=== PATIENT | male | born 1945 | race Caucasian/White ===

== ENCOUNTER 2017-09-10 08:41 | Emergency (ER) | payer OTHER ==
[~2017-09-10] VITALS: Ht 172.7 cm; Wt 90.9 kg
[2017-09-10] MEDS ORDERED: ASPI81 PO (09:01)
[2017-09-10] MEDS ORDERED: INSLAN SQ (09:01)
[2017-09-10] MEDS ORDERED: HYDR-4069 PO (09:01)
[2017-09-10] MEDS ORDERED: LISI-662 PO (09:01)
[2017-09-10] MEDS ORDERED: SITA100 PO (09:01)
[2017-09-10] MEDS ORDERED: INSU3INS5 SQ (09:01)
[2017-09-10] MEDS ORDERED: FURO20 PO (09:01)
[2017-09-10] MEDS ORDERED: METO50 PO (09:01)
[2017-09-10] MEDS ORDERED: AMLO-512 PO (09:01)
[2017-09-10] MEDS ORDERED: OMEP20 PO (09:01)
[2017-09-10] MEDS ORDERED: FERR-89 PO (09:01)
[2017-09-10] MEDS ORDERED: GABA-531 PO (09:01)
[2017-09-10] MEDS ORDERED: SIMV-259 PO (09:01)
[2017-09-10] MEDS ORDERED: NAPR-58 PO (09:01)
[2017-09-10] MEDS ORDERED: OMEG100033 PO (09:01)
[2017-09-10 09:03] LABS: GLUCOSE,POINT OF CARE 273 MG/DL (70-110)
[2017-09-10 11:42] LABS: HEMATOCRIT 54.1 % (41-53); HEMOGLOBIN 17.4 g/dL (13.5-17.5); MEAN CORPUSCULAR HEMOGLOBIN 28.2 pg (26.0-34.0); MEAN CORPUSCULAR HGB CONC 32.2 G/dL (31.0-37.0); MEAN CORPUSCULAR VOLUME 88 fL (80-100); PLATELET COUNT (AUTO) 346 K/uL (150-450); RED BLOOD CELL COUNT(AUTO) 6.18 MIL/uL (4.50-5.90); RED CELL DISTRIBUTION WIDTH 14.9 % (11.5-14.5)
[2017-09-10] MEDS ORDERED: MORPHINE SULFATE 4 MG/ML SYRINGE IVP ONE ×2 (11:45→14:45)
[2017-09-10] MEDS ORDERED: SODIUM CHLORIDE 0.9% 1,000 ML IV ONE ×3 (11:45→15:15)
[2017-09-10] MEDS ORDERED: MORPHINE SULFATE 4 MG/ML SYRINGE IM ONE (11:45)
[2017-09-10] MEDS ORDERED: ONDANSETRON HCL 4 MG/2 ML VIAL IVP ONE ×2 (11:45→15:00)
[2017-09-10 11:52] LABS: CALCIUM, TOTAL 9.1 mg/dL (8.8-10.5); CREATININE 1.49 mg/dL (0.60-1.30); POTASSIUM 5.4 mmol/L (3.5-5.1)
[2017-09-10 11:58] LABS: ALBUMIN 4.2 g/dL (3.4-5.0); BILIRUBIN,TOTAL 0.7 mg/dL (0.1-1.0); TOTAL PROTEIN, SERUM 8.6 g/dL (6.4-8.2)
[2017-09-10 12:05] LABS: BAND NEUTROPHILS % (MANUAL) 26 % (1-5); LYMPHOCYTES % (MANUAL) 8 % (22-44); MONOCYTES % (MANUAL) 3 % (2-9); SEGMENTED NEUTROPHILS % 63 % (40-70)
[2017-09-10 14:06] LABS: CALCIUM, TOTAL 7.4 mg/dL (8.8-10.5); CREATININE 1.36 mg/dL (0.60-1.30); POTASSIUM 5.1 mmol/L (3.5-5.1)
[2017-09-10] MEDS ORDERED: SODIUM POLYSTYRENE SULFONATE 15 GM/60 ML SUSPENSION BOTTLE PO ONE (14:30)
[2017-09-10 16:30] VITALS: BP 112/81
== END 2017-09-10 17:12 | disposition home or self-care (01) ==
LOC: EMS 08:45
DX: K52.9 Noninfective gastroenteritis and colitis, unspecified (principal); E86.0 Dehydration; E11.9 Type 2 diabetes mellitus without complications; E78.00 Pure hypercholesterolemia, unspecified; I10 Essential (primary) hypertension; Z79.4 Long term (current) use of insulin; Z88.0 Allergy status to penicillin
CPT/HCPCS: 36415; 71045; 74176; 76705; 80048; 80053; 82948; 82962; 83690; 84484; 85025; 93005; 96361; 96374; 96375; 96376; 99285; J2270; J2405; J7030